=== PATIENT | female | born 1940 | race Caucasian/White ===

== ENCOUNTER 2017-09-04 12:49 | Inpatient (IN) | payer OTHER ==
[~2017-09-04] VITALS: Ht 157.5 cm; Wt 69.9 kg
--- NOTE | ~2017-09-04 | EKG ---
[address] [place] [address] ELECTROCARDIOGRAM REPORT Name: KELSIE ANN Room #: 170-4 ADM IN M.R.#: [id number] Admission: 09/04/17 Attend Phys: Reece Loredo MD Discharge: Date of : 40 Report #: [id number] THIS REPORT FOR: //name// [facility] ED Test Date: 2017-09-04 Test Time: 13:23:33 Pat Name: KELSIE ANN Department: Room: [facility] Gender: F Block Breaker Operator: Tiffany NOLAN : 1940 Requested By: Gene Camacho Order Number: [id number] MD: Morro Thornton Measurements Intervals [place] Rate: 83 P: 20 SD: 179 QRS: 7 QRSD: 91 T: 25 QT: 443 QTc: 521 Interpretive Statements Baseline artifact limits interpretation Sinus rhythm No significant abnormality Artifact in lead(s) II,III,aVR,aVL,aVF Compared to ECG 11/09/2015 13:17:36 No significant change was found Electronically Signed On 09-04-2017 14:18:49 OFFICE CHAIR ASSEMBLER by Morro Thornton [email or web address] <ELECTRONICALLY SIGNED> By: Morro Thornton MD, [facility] 09/04/17 1418 1323 1323 Morro Thornton MD, [facility] /EPI
--- NOTE | ~2017-09-04 | D ---
[facility] [place] [address] DISCHARGE SUMMARY Name: KELSIE ANN Room #: 202-P [facility] IN M.R.#: [id number] Admission: 09/04/17 Attend Phys: Reece Loredo MD Discharge: 09/12/17 Date of : 40 Report #: [id number] THIS REPORT FOR: //name// CC: FAM unknown Reece Loredo DATE OF SERVICE: 09/12/2017 HISTORY OF PRESENT ILLNESS: The patient is a 77-year-old female with end-stage Parkinson's disease, who is currently on palliative care. The patient presented to the emergency room with altered mental status and severe lethargy. She was found to have community-acquired pneumonia, involving right lower lobe. The patient was also found to have severe urinary tract infection. Please refer to admission H and P for details. HOSPITALIZATION COURSE: The patient was hospitalized. She was started on Rocephin and Zithromax, as well as on breathing treatments. She was also treated with IV fluids. Her condition improved significantly. She became much more alert. Few days later, the patient was at baseline. Although, chest x-ray showed more consolidation of the infiltrates, she did much better clinically. On IV fluids, the patient developed swelling. She was treated with Lasix. Swelling has improved significantly. Urine culture showed Klebsiella, that is sensitive to multiple antibiotics. As noted, the patient has already been treated with Rocephin for pneumonia. The patient had TSH checked, that was normal. Levothyroxine dose was continued unchanged. Before discharge, the patient was assessed for necessity of home oxygen. She qualifies for 3 liters of oxygen by nasal cannula. The patient's hospital stay was otherwise uneventful. She will be discharged home back on palliative care. Oral antibiotics will be continued. The patient has been instructed to continue all home medications unchanged, and discussed with the primary care physician and neurologist about possible changes. DISCHARGE MEDICATIONS: Please refer to the medication reconciliation list. As noted, home medications are not changed. The patient will be discharged on Ceftin and doxycycline for 1 more week. She is also prescribed with albuterol inhaler as needed as well as Lasix for the next 2 weeks. DISPOSITION: The patient is discharged home on palliative care. FOLLOWUP PLAN: Follow up with the primary care physician in 1-[address] [address] DISCHARGE SUMMARY Name: KELSIE ANN Room #: 202-P [facility] IN M.R.#: [id number] Admission: 09/04/17 Attend Phys: Reece Loredo MD Discharge: 09/12/17 Date of : 40 Report #: [id number] I spent greater than 30 minutes to coordinate the patient's discharge from the hospital. <ELECTRONICALLY SIGNED> By: Reece Loredo MD 09/14/17 1604 1127 1209 Reece Loredo MD /harry
--- NOTE | ~2017-09-04 | D ---
[facility] [place] [address] DISCHARGE SUMMARY Name: KELSIE ANN Room #: 202-P [facility] IN M.R.#: [id number] Admission: 09/04/17 Attend Phys: Reece Loredo MD Discharge: 09/12/17 Date of : 40 Report #: [id number] THIS REPORT FOR: //name// CC: FAM unknown Reece Loredo DATE OF SERVICE: 09/12/2017 ADDENDUM addendum to discharge summary dictation on 09/12/2017 FINAL DIAGNOSES: 1. Community-acquired pneumonia, involving right lower lobe, clinically much better. 2. Severe urinary tract infection, clinically better. 3. Acute toxic encephalopathy due to above, resolved. The patient currently at baseline. 4. End-stage per Parkinson's disease, the patient is on palliative care. 5. Chronic kidney disease stage 3, stable. 6. Primary hypothyroidism. <ELECTRONICALLY SIGNED> By: Reece Loredo MD 11/07/17 1443 1214 1254 Reece Loredo MD /nt
[~2017-09-04 12:49] MED LIST: ASPIR 8181 MG PO; CHLORDIAZEPOXID10 MG PO; EFFEXOR XR75 MG PO; GABAPENTIN 100100 MG PO; GLUCOPHAGE500 MG PO; GLYBURIDE 1.21.25 MG; INDAPAMIDE2.5 MG PO; LEVOTHYROXINE0.2 M1; LEVOTHYROXINE0.2 M1 PO; LIBRIUM10 MG PO; LOTENSIN20 MG PO; LOTENSIN5 MG; METFORMIN HCL500 MG PO; NORVASC 5 MG TAB5 MG PO; OCEAN45 ML NS; PAXIL10 MG PO; REQUIP4 MG PO; SINEMET 25-1001 EAC1 PO; TRAZODONE HCL100 MG PO; TRICOR145 MG PO; VENLAFAXIN75 MG/1 T2; VITAMINC500 PO; ZOCOR5 MG
[2017-09-04 12:50] VITALS: BP 163/72
[2017-09-04 13:08] LABS: BASOPHILS 0.6 % (0.0-2.0); EOSINOPHILS 3.8 % (0.0-3.0); HEMATOCRIT 30.3 % (37.0-47.0); LYMPHOCYTES 13.2 % (24.0-44.0); MCH 25.9 pg (26.0-34.0); MCHC 33.1 g/dL (28.0-37.0); MCV 78.1 fL (80.0-100.0); MONOCYTES 10.7 % (1.0-8.0); PLATELET COUNT 228 thou/uL (150-400); POLYS 71.7 % (36.0-66.0); RBC 3.88 mil/uL (4.20-5.00); RDW 15.1 % (10.5-14.5); WBC 11.2 thou/uL (4.0-11.0)
[2017-09-04 13:15] LABS: URINE BILIRUBIN NEGATIVE (Negative); URINE BLOOD 1+ (Negative); URINE COLOR YELLOW; URINE GLUCOSE-RANDOM* NEGATIVE (Negative); URINE KETONES NEGATIVE (Negative); URINE LEUKOCYTES 2+ (Negative); URINE NITRITE POSITIVE (Negative); URINE PROTEIN (DIPSTICK) NEGATIVE (Negative); URINE SPECIFIC GRAVITY 1.025 (1.005-1.035)
[2017-09-04 13:16] LABS: URINE CLARITY CLOUDY
[2017-09-04 13:16] LABS: ANION GAP 7 mmol/L (7-16); BUN 28 mg/dL (7-18); CALCIUM 9.3 mg/dL (8.5-10.1); CHLORIDE 101 mmol/L (98-107); CO2 32 mmol/L (21-32); CREATININE 1.2 mg/dL (0.6-1.0); GLUCOSE 188 mg/dL (74-106); POTASSIUM 3.9 mmol/L (3.5-5.1); SODIUM 140 mmol/L (136-145)
[2017-09-04 13:22] LABS: SQUAMOUS 0-3 Few /LPF (0-3); URINE RBC 0-2 Rare /HPF (0-2)
[2017-09-04 13:23] LABS: BACTERIA >30 Many /HPF (None Seen); CASTS None Seen /LPF (None Seen); CRYSTALS None Seen /LPF (None Seen)
[2017-09-04 13:25] LABS: ALBUMIN 2.5 g/dL (3.4-5.0); SGOT 17 U/L (15-37); SGPT 20 U/L (30-65); TOTAL BILIRUBIN 0.2 mg/dL (<0.1-1.0); TOTAL PROTEIN 6.7 g/dL (6.4-8.2); TROPONIN-I < 0.04 ng/mL (<0.06)
[2017-09-04] MEDS ORDERED: AMLODIPINE BESY10 MG PO (13:30)
[2017-09-04] MEDS ORDERED: BUPROPION HCL150 M1 PO (13:31)
[2017-09-04] MEDS ORDERED: COREG25 MG PO (13:32)
[2017-09-04] MEDS ORDERED: GLUCOTROL5 MG PO (13:33)
[2017-09-04] MEDS ORDERED: NEURONTIN 300300 M1 PO (13:33)
[2017-09-04] MEDS ORDERED: VITAMIN B-12500 MCG PO (13:33)
[2017-09-04] MEDS ORDERED: SYNTHROID100 MCG PO (13:34)
[2017-09-04] MEDS ORDERED: HYDRALAZINE 2525 MG PO (13:34)
[2017-09-04] MEDS ORDERED: INDAPAMIDE2.5 MG PO (13:35)
[2017-09-04] MEDS ORDERED: B12INJ IM ×2 (13:37→13:38)
[2017-09-04] MEDS ORDERED: VITAMIN D2000 UNIT PO (13:37)
[2017-09-04] MEDS ORDERED: NORTRIPTYLINE H50 M3 PO (13:39)
[2017-09-04] MEDS ORDERED: NUPLAZID17 MG PO (13:40)
[2017-09-04] MEDS ORDERED: POTASSIUM20 PO (13:40)
[2017-09-04] MEDS ORDERED: NYAMYC15 GM TOP (13:41)
[2017-09-04] MEDS ORDERED: SEROQUEL 25 MG25 MG PO (13:42)
[2017-09-04 16:26] VITALS: BP 155/72
[2017-09-04 18:00] VITALS: BP 162/86
[2017-09-04 18:05] VITALS: BP 152/70
[2017-09-05 03:21] VITALS: BP 120/47
[2017-09-05 03:34] LABS: ABSOLUTE NEUTROPHILS 8.2 thou/uL (1.4-8.2); BASOPHILS 0.2 % (0.0-2.0); EOSINOPHILS 0.1 % (0.0-3.0); HEMATOCRIT 28.1 % (37.0-47.0); HEMOGLOBIN 9.4 gm/dL (12.0-15.0); LYMPHOCYTES 8.8 % (24.0-44.0); MCH 25.8 pg (26.0-34.0); MCHC 33.3 g/dL (28.0-37.0); MCV 77.5 fL (80.0-100.0); MONOCYTES 2.7 % (1.0-8.0); PLATELET COUNT 260 thou/uL (150-400); POLYS 88.2 % (36.0-66.0); RBC 3.63 mil/uL (4.20-5.00); RDW 14.4 % (10.5-14.5); WBC 9.3 thou/uL (4.0-11.0)
[2017-09-05 03:45] LABS: CALCIUM 8.6 mg/dL (8.5-10.1); CREATININE 1.1 mg/dL (0.6-1.0)
[2017-09-05 08:43] VITALS: BP 148/50
[2017-09-05 15:46] VITALS: BP 155/65
[2017-09-05 19:35] VITALS: BP 141/55
[2017-09-06 04:24] VITALS: BP 126/52
[2017-09-06 08:56] VITALS: BP 152/58
[2017-09-06 11:19] VITALS: BP 117/47
[2017-09-06 15:58] VITALS: BP 113/43
[2017-09-06 19:35] VITALS: BP 131/46
[2017-09-07 02:57] LABS: ABSOLUTE NEUTROPHILS 5.4 thou/uL (1.4-8.2); BASOPHILS 0.7 % (0.0-2.0); EOSINOPHILS 3.3 % (0.0-3.0); HEMATOCRIT 27.8 % (37.0-47.0); HEMOGLOBIN 8.9 gm/dL (12.0-15.0); LYMPHOCYTES 17.7 % (24.0-44.0); MCH 25.5 pg (26.0-34.0); MCHC 32.2 g/dL (28.0-37.0); MCV 79.1 fL (80.0-100.0); MONOCYTES 11.8 % (1.0-8.0); PLATELET COUNT 244 thou/uL (150-400); POLYS 66.5 % (36.0-66.0); RBC 3.51 mil/uL (4.20-5.00); RDW 15.2 % (10.5-14.5); WBC 8.1 thou/uL (4.0-11.0)
[2017-09-07 03:05] LABS: CALCIUM 8.4 mg/dL (8.5-10.1); CREATININE 0.9 mg/dL (0.6-1.0); POTASSIUM 3.6 mmol/L (3.5-5.1)
[2017-09-07 05:57] VITALS: BP 133/42
[2017-09-07 07:23] VITALS: BP 129/48
[2017-09-07 10:56] VITALS: BP 129/48
[2017-09-07 16:00] VITALS: BP 122/47
[2017-09-07 19:34] VITALS: BP 131/54
[2017-09-08 05:18] VITALS: BP 126/52
[2017-09-08 08:04] VITALS: BP 134/44
[2017-09-08 13:42] VITALS: BP 115/46
[2017-09-08 16:12] VITALS: BP 114/50
[2017-09-08 16:30] VITALS: BP 129/48
[2017-09-08 20:52] VITALS: BP 131/59
[2017-09-09 04:50] VITALS: BP 148/49
[2017-09-09 05:28] LABS: HEMATOCRIT 26.7 % (37.0-47.0); HEMOGLOBIN 9.1 gm/dL (12.0-15.0); MCH 26.9 pg (26.0-34.0); MCHC 34.2 g/dL (28.0-37.0); MCV 78.7 fL (80.0-100.0); PLATELET COUNT 219 thou/uL (150-400); RDW 14.9 % (10.5-14.5)
[2017-09-09 05:38] LABS: CALCIUM 8.4 mg/dL (8.5-10.1); MAGNESIUM 1.6 mg/dL (1.8-2.4); POTASSIUM 3.3 mmol/L (3.5-5.1); TOTAL BILIRUBIN 0.2 mg/dL (<0.1-1.0); TOTAL PROTEIN 5.6 g/dL (6.4-8.2)
[2017-09-09 07:57] VITALS: BP 142/58
[2017-09-09 08:21] LABS: ANISOCYTOSIS 1+; POLYCHROMASIA OCCASIONAL
[2017-09-09 08:22] LABS: HYPOCHROMASIA SLIGHT; MICROCYTES 1+
[2017-09-09 15:30] VITALS: BP 109/46
[2017-09-09 19:21] VITALS: BP 116/47
[2017-09-10 04:35] LABS: ALBUMIN 1.9 g/dL (3.4-5.0); CALCIUM 8.4 mg/dL (8.5-10.1); PHOSPHORUS 3.5 mg/dL (2.5-4.9); POTASSIUM 3.9 mmol/L (3.5-5.1)
[2017-09-10 04:49] VITALS: BP 151/60
[2017-09-10 08:00] VITALS: BP 146/60
[2017-09-10 13:19] VITALS: BP 130/50
[2017-09-10 15:45] VITALS: BP 128/50
[2017-09-10 19:33] VITALS: BP 133/56
[2017-09-11 03:11] VITALS: BP 141/62
[2017-09-11 04:09] LABS: ANION GAP 5 mmol/L (7-16); BUN 16 mg/dL (7-18); CHLORIDE 107 mmol/L (98-107); CO2 30 mmol/L (21-32); CREATININE 0.9 mg/dL (0.6-1.0); GLUCOSE 118 mg/dL (74-106); POTASSIUM 3.9 mmol/L (3.5-5.1); SGOT 10 U/L (15-37); SGPT < 6 U/L (30-65); SODIUM 142 mmol/L (136-145); TOTAL BILIRUBIN 0.2 mg/dL (<0.1-1.0); TOTAL PROTEIN 5.8 g/dL (6.4-8.2)
[2017-09-11 04:27] LABS: HEMATOCRIT 27.6 % (37.0-47.0); MCH 25.7 pg (26.0-34.0); MCHC 32.6 g/dL (28.0-37.0); MCV 78.9 fL (80.0-100.0); RBC 3.49 mil/uL (4.20-5.00); RDW 15.2 % (10.5-14.5); WBC 7.9 thou/uL (4.0-11.0)
[2017-09-11 08:00] VITALS: BP 134/41
[2017-09-11 16:00] VITALS: BP 153/46
[2017-09-11 20:30] VITALS: BP 148/84
[2017-09-12 04:45] VITALS: BP 122/46
[2017-09-12 05:18] LABS: CALCIUM 9.2 mg/dL (8.5-10.1); CREATININE 0.9 mg/dL (0.6-1.0); POTASSIUM 3.8 mmol/L (3.5-5.1)
[2017-09-12 07:40] VITALS: BP 166/54
[2017-09-12 09:50] VITALS: BP 129/48
[2017-09-12 11:15] VITALS: BP 126/44
[2017-09-12] MEDS ORDERED: DOXYCYCLINE 10100 MG PO (11:33)
[2017-09-12] MEDS ORDERED: LASIX 20 MG TAB20 MG PO (11:33)
[2017-09-12] MEDS ORDERED: CEFUROXIME500 MG PO (11:33)
[2017-09-12] MEDS ORDERED: VENTOLIN HFA 1818 GM INH (11:33)
[2017-09-12] MEDS ORDERED: CHLORDIAZEPOXID10 MG PO (11:33)
[2017-09-12 12:22] VITALS: BP 129/48
[2017-09-12 12:59] VITALS: BP 129/48
== END 2017-09-12 13:30 | disposition hospice, home (50) | DRG 682 ==
LOC: ER 12:49 → 2N 13:38 → EROBS 13:38 → 2N 17:47
PROVIDERS: Hospitalist; Internal Medicine Endocrinology, Diabetes & Metabolism; Physician Assistant; Registered Nurse
DX: N17.9 Acute kidney failure, unspecified (principal); J18.1 Lobar pneumonia, unspecified organism; G92 Toxic encephalopathy; J96.01 Acute respiratory failure with hypoxia; N39.0 Urinary tract infection, site not specified; F32.9 Major depressive disorder, single episode, unspecified; F41.9 Anxiety disorder, unspecified; F41.0 Panic disorder [episodic paroxysmal anxiety]; D64.9 Anemia, unspecified; Z51.5 Encounter for palliative care; G20 Parkinson's disease; I12.9 Hypertensive chronic kidney disease with stage 1 through stage 4 chronic kidney disease, or unspecified chronic kidney disease; N18.3 Chronic kidney disease, stage 3 (moderate); E11.22 Type 2 diabetes mellitus with diabetic chronic kidney disease; E03.9 Hypothyroidism, unspecified; E11.319 Type 2 diabetes mellitus with unspecified diabetic retinopathy without macular edema; B96.1 Klebsiella pneumoniae [K. pneumoniae] as the cause of diseases classified elsewhere; R13.10 Dysphagia, unspecified; E87.6 Hypokalemia; E83.42 Hypomagnesemia; Z90.49 Acquired absence of other specified parts of digestive tract; Z88.0 Allergy status to penicillin; Z88.8 Allergy status to other drugs, medicaments and biological substances; Z79.82 Long term (current) use of aspirin; Z79.899 Other long term (current) drug therapy
CPT/HCPCS: 10081

== ENCOUNTER 2018-04-05 12:46 | Inpatient (IN) | payer OTHER ==
[~2018-04-05] VITALS: Ht 152.4 cm; Wt 65.0 kg
--- NOTE | ~2018-04-05 | EKG ---
[address] [address] ELECTROCARDIOGRAM REPORT Name: KELSIE ANN Room #: 430-P ADM IN M.R.#: [id number] Admission: 04/05/18 Attend Phys: Abdulkadir Knutson MD Discharge: Date of : 40 Report #: [id number] THIS REPORT FOR: //name// [facility] ED Test Date: 2018-04-05 Test Time: 14:09:34 Pat Name: KELSIE ANN Department: Room: 430 P Gender: F Press Helper: GIULIANO : 1940 Requested By: Claudy Hope Order Number: [id number] MD: Orville Sam Measurements Intervals [place] Rate: 170 P: 75 [place]: 46 QRS: 20 QRSD: 142 T: 158 QT: 330 QTc: 555 Interpretive Statements Normal sinus rhythm with excessive motion artifact Electronically Signed On 04-13-2018 13:28:56 CDT by Orville Sam [email or web address] <ELECTRONICALLY SIGNED> By: Orville Sam MD 04/13/18 1328 1409 1409 Orville Sam MD /SELAM
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
--- NOTE | ~2018-04-05 | EKG ---
[address] [address] ELECTROCARDIOGRAM REPORT Name: KELSIE ANN Room #: 430-P ADM IN M.R.#: [id number] Admission: 04/05/18 Attend Phys: Abdulkadir Knutson MD Discharge: Date of : 40 Report #: [id number] THIS REPORT FOR: //name// [facility] ED Test Date: 2018-04-05 Test Time: 13:51:43 Pat Name: KELSIE ANN Department: Room: 430 P Gender: F Greens Or Grounds Superintendent: GIULIANO : 1940 Requested By: Claudy Hope Order Number: [id number] MD: Orville Sam Measurements Intervals [place] Rate: 184 P: [place]: QRS: 0 QRSD: 179 T: 9 QT: 408 QTc: 715 Interpretive Statements Sinus rhythm with excessive motion artifact likely from tremor Electronically Signed On 04-13-2018 13:28:36 CDT by Orville Sam [email or web address] <ELECTRONICALLY SIGNED> By: Orville Sam MD 04/13/18 1328 1351 1351 Orville Sam MD /SELAM
[2018-04-05 12:46] VITALS: BP 156/78
[~2018-04-05 12:46] MED LIST changes: +AMLODIPINE BESY10 MG PO; +B12INJ IM; +BUPROPION HCL150 M1 PO; +CEFUROXIME500 MG PO; +COREG25 MG PO; +DOXYCYCLINE 10100 MG PO; +GLUCOTROL5 MG PO; +HYDRALAZINE 2525 MG PO; +LASIX 20 MG TAB20 MG PO; +NEURONTIN 300300 M1 PO; +NORTRIPTYLINE H50 M3 PO; +NUPLAZID17 MG PO; +NYAMYC15 GM TOP; +POTASSIUM20 PO; +SEROQUEL 25 MG25 MG PO; +SYNTHROID100 MCG PO; +VENTOLIN HFA 1818 GM INH; +VITAMIN B-12500 MCG PO; +VITAMIN D2000 UNIT PO
[2018-04-05 13:26] LABS: ABSOLUTE NEUTROPHILS 5.5 thou/uL (1.4-8.2); BASOPHILS 0.8 % (0.0-2.0); EOSINOPHILS 2.9 % (0.0-3.0); HEMATOCRIT 37.1 % (37.0-47.0); HEMOGLOBIN 12.1 gm/dL (12.0-15.0); LYMPHOCYTES 18.6 % (24.0-44.0); MCH 25.8 pg (26.0-34.0); MCHC 32.7 g/dL (28.0-37.0); MCV 78.8 fL (80.0-100.0); PLATELET COUNT 203 thou/uL (150-400); POLYS 69.7 % (36.0-66.0); RBC 4.71 mil/uL (4.20-5.00); RDW 15.1 % (10.5-14.5); WBC 7.9 thou/uL (4.0-11.0)
[2018-04-05 13:35] LABS: ANION GAP 7 mmol/L (7-16); BUN 18 mg/dL (7-18); CALCIUM 9.7 mg/dL (8.5-10.1); CHLORIDE 102 mmol/L (98-107); CO2 31 mmol/L (21-32); CREATININE 1.1 mg/dL (0.6-1.0); GLUCOSE 132 mg/dL (74-106); SODIUM 140 mmol/L (136-145)
[2018-04-05 13:41] LABS: ALBUMIN 3.6 g/dL (3.4-5.0); DIRECT BILIRUBIN < 0.1 mg/dL (<0.1-0.3); LIPASE 171 U/L (73-393); SGOT 16 U/L (15-37); SGPT 18 U/L (30-65); TOTAL BILIRUBIN 0.3 mg/dL (<0.1-1.0); TOTAL PROTEIN 7.4 g/dL (6.4-8.2)
[2018-04-05 14:28] VITALS: BP 187/58
[2018-04-05 15:44] VITALS: BP 188/62
[2018-04-05 17:06] VITALS: BP 189/68
[2018-04-05] MEDS ORDERED: CHLORDIAZEPOXID10 MG PO (18:14)
[2018-04-05] MEDS ORDERED: HYDRALAZINE 2525 MG PO (18:15)
[2018-04-05] MEDS ORDERED: ALDACTONE50 MG PO (18:16)
[2018-04-05 19:49] VITALS: BP 153/69
[2018-04-06 05:20] VITALS: BP 171/82
[2018-04-06 06:17] LABS: HEMATOCRIT 33.9 % (37.0-47.0); HEMOGLOBIN 11.3 gm/dL (12.0-15.0); MCH 26.9 pg (26.0-34.0); MCHC 33.4 g/dL (28.0-37.0); MCV 80.4 fL (80.0-100.0); RBC 4.22 mil/uL (4.20-5.00); RDW 15.1 % (10.5-14.5); WBC 6.9 thou/uL (4.0-11.0)
[2018-04-06 06:35] LABS: CALCIUM 9.7 mg/dL (8.5-10.1); CREATININE 1.1 mg/dL (0.6-1.0); POTASSIUM 3.9 mmol/L (3.5-5.1)
[2018-04-06 07:23] VITALS: BP 148/48
[2018-04-06 16:02] VITALS: BP 153/62
[2018-04-06 20:00] VITALS: BP 140/49
[2018-04-07 05:00] VITALS: BP 141/44
[2018-04-07 06:41] LABS: ABSOLUTE NEUTROPHILS 5.6 thou/uL (1.4-8.2); BASOPHILS 0.8 % (0.0-2.0); EOSINOPHILS 3.2 % (0.0-3.0); HEMATOCRIT 34.3 % (37.0-47.0); HEMOGLOBIN 11.2 gm/dL (12.0-15.0); LYMPHOCYTES 17.8 % (24.0-44.0); MCH 26.3 pg (26.0-34.0); MCHC 32.8 g/dL (28.0-37.0); MCV 80.2 fL (80.0-100.0); MONOCYTES 10.2 % (1.0-8.0); PLATELET COUNT 190 thou/uL (150-400); RBC 4.27 mil/uL (4.20-5.00); RDW 15.1 % (10.5-14.5); WBC 8.3 thou/uL (4.0-11.0)
[2018-04-07 06:53] LABS: CALCIUM 9.2 mg/dL (8.5-10.1); CREATININE 1.3 mg/dL (0.6-1.0)
[2018-04-07 08:54] VITALS: BP 154/51
[2018-04-07 16:00] VITALS: BP 141/46
[2018-04-07 20:00] VITALS: BP 137/48
[2018-04-08 04:30] VITALS: BP 148/49
[2018-04-08 06:20] LABS: ABSOLUTE NEUTROPHILS 5.7 thou/uL (1.4-8.2); BASOPHILS 0.8 % (0.0-2.0); EOSINOPHILS 3.5 % (0.0-3.0); HEMATOCRIT 33.7 % (37.0-47.0); HEMOGLOBIN 10.6 gm/dL (12.0-15.0); LYMPHOCYTES 13.9 % (24.0-44.0); MCH 25.6 pg (26.0-34.0); MCHC 31.4 g/dL (28.0-37.0); MCV 81.4 fL (80.0-100.0); MONOCYTES 10.4 % (1.0-8.0); PLATELET COUNT 190 thou/uL (150-400); POLYS 71.4 % (36.0-66.0); RBC 4.15 mil/uL (4.20-5.00); RDW 14.9 % (10.5-14.5); WBC 7.9 thou/uL (4.0-11.0)
[2018-04-08 06:31] LABS: CALCIUM 8.9 mg/dL (8.5-10.1); CREATININE 1.2 mg/dL (0.6-1.0); MAGNESIUM 1.2 mg/dL (1.8-2.4); POTASSIUM 3.9 mmol/L (3.5-5.1)
[2018-04-08 07:31] VITALS: BP 133/41
[2018-04-08 16:15] VITALS: BP 149/62
[2018-04-08 19:40] VITALS: BP 165/39
[2018-04-09 04:21] VITALS: BP 154/61
[2018-04-09 20:24] VITALS: BP 127/38
[2018-04-10 04:42] VITALS: BP 165/56
[2018-04-10 06:32] LABS: ABSOLUTE NEUTROPHILS 3.7 thou/uL (1.4-8.2); BASOPHILS 1.2 % (0.0-2.0); EOSINOPHILS 5.2 % (0.0-3.0); HEMATOCRIT 31.8 % (37.0-47.0); HEMOGLOBIN 10.6 gm/dL (12.0-15.0); LYMPHOCYTES 20.6 % (24.0-44.0); MCH 26.6 pg (26.0-34.0); MCHC 33.2 g/dL (28.0-37.0); MCV 80.3 fL (80.0-100.0); PLATELET COUNT 160 thou/uL (150-400); RBC 3.96 mil/uL (4.20-5.00); RDW 15.1 % (10.5-14.5); WBC 6.1 thou/uL (4.0-11.0)
[2018-04-10 06:49] LABS: CALCIUM 9.5 mg/dL (8.5-10.1); CREATININE 0.9 mg/dL (0.6-1.0); MAGNESIUM 1.7 mg/dL (1.8-2.4); POTASSIUM 4.2 mmol/L (3.5-5.1)
[2018-04-10 07:53] VITALS: BP 152/48
[2018-04-10] MEDS ORDERED: B12INJ IM (13:46)
[2018-04-10 16:09] VITALS: BP 143/51
[2018-04-10 16:58] VITALS: BP 143/51
[2018-04-10 20:29] VITALS: BP 137/42
[2018-04-11 05:29] VITALS: BP 173/75
[2018-04-11 07:32] VITALS: BP 148/44
[2018-04-11 11:00] VITALS: BP 148/44
[2018-04-11 15:19] VITALS: BP 148/44
[2018-04-11 17:35] VITALS: BP 182/69
[2018-04-11 19:53] VITALS: BP 167/64
[2018-04-12 04:45] VITALS: BP 191/82
[2018-04-12 05:31] LABS: HEMOGLOBIN 11.4 gm/dL (12.0-15.0); MCH 26.6 pg (26.0-34.0); MCHC 33.4 g/dL (28.0-37.0); MCV 79.8 fL (80.0-100.0); RBC 4.26 mil/uL (4.20-5.00); RDW 14.9 % (10.5-14.5); WBC 7.2 thou/uL (4.0-11.0)
[2018-04-12 05:34] LABS: CALCIUM 9.7 mg/dL (8.5-10.1); CREATININE 0.9 mg/dL (0.6-1.0); POTASSIUM 3.6 mmol/L (3.5-5.1)
[2018-04-12 07:35] VITALS: BP 177/71
[2018-04-12 09:25] VITALS: BP 177/75
[2018-04-12 15:10] VITALS: BP 131/53
[2018-04-12 20:00] VITALS: BP 143/61
[2018-04-13 03:48] VITALS: BP 145/50
[2018-04-13 07:30] VITALS: BP 139/67
[2018-04-13 11:18] VITALS: BP 139/66
[2018-04-13] MEDS ORDERED: INDAPAMIDE1.25 MG PO (13:07)
[2018-04-13] MEDS ORDERED: FLONASE 0.05%50 MCG NASAL (13:07)
== END 2018-04-13 16:58 | disposition hospice, inpatient (51) | DRG 177 ==
LOC: ER 12:46 → 4E 14:01 → EROBS 14:01 → 4E 15:45
PROVIDERS: Family Medicine; Hospitalist; Nurse Practitioner; Nurse Practitioner Family; Student in an Organized Health Care Education/Training Program
DX: J15.1 Pneumonia due to Pseudomonas (principal); E43 Unspecified severe protein-calorie malnutrition; J98.11 Atelectasis; G20 Parkinson's disease; N18.3 Chronic kidney disease, stage 3 (moderate); I12.9 Hypertensive chronic kidney disease with stage 1 through stage 4 chronic kidney disease, or unspecified chronic kidney disease; I25.10 Atherosclerotic heart disease of native coronary artery without angina pectoris; E11.22 Type 2 diabetes mellitus with diabetic chronic kidney disease; F32.9 Major depressive disorder, single episode, unspecified; M62.84 Sarcopenia; E83.42 Hypomagnesemia; Z68.28 Body mass index [BMI] 28.0-28.9, adult; E55.9 Vitamin D deficiency, unspecified; E11.319 Type 2 diabetes mellitus with unspecified diabetic retinopathy without macular edema; Z98.41 Cataract extraction status, right eye; F41.9 Anxiety disorder, unspecified; E03.9 Hypothyroidism, unspecified; Z79.84 Long term (current) use of oral hypoglycemic drugs; Z79.82 Long term (current) use of aspirin; Z79.899 Other long term (current) drug therapy; Z88.0 Allergy status to penicillin; Z88.8 Allergy status to other drugs, medicaments and biological substances
CPT/HCPCS: 10084